=== PATIENT | female | born 1985 | race African-American/Black ===

== ENCOUNTER 2018-08-26 18:39 | Emergency (ER) | payer OTHER ==
[~2018-08-26] VITALS: Ht 165.1 cm; Wt 113.4 kg
[2018-08-26 19:52] VITALS: BP 130/75; TEMP 98.5
== END 2018-08-26 19:54 | disposition home or self-care (01) ==
LOC: ED 18:39
DX: H65.191 Other acute nonsuppurative otitis media, right ear (principal)
CPT/HCPCS: 87651; 99283